=== PATIENT | male | born 1955 | race Caucasian/White ===

== ENCOUNTER 2019-02-17 13:51 | Emergency (ER) | payer MEDICAID ==
[~2019-02-17] VITALS: Ht 165.1 cm; Wt 54.1 kg
[~2019-02-17 13:51] MED LIST: DOXY100T21 PO; HYDR-4011 PO; ONDA4TAB14 PO
[2019-02-17 14:02] VITALS: Ht 165.1 cm; Wt 54.1 kg
[2019-02-17] MEDS ORDERED: ONDANSETRON 4 MG INJ IV STA (14:37)
[2019-02-17] MEDS ORDERED: morphine 4 MG/ML VIAL IV STA (14:37)
[2019-02-17] MEDS ORDERED: SOD CHLORIDE 0.9% 1,000 ML IV STA (14:37)
[2019-02-17] MEDS ORDERED: CEFTRIAXONE 1 GM/50 ML (PMX) 50 ML IVPB STA (16:22)
[2019-02-17] MEDS ORDERED: SODIUM CHLORIDE 0.9% 1L BAG IV* STA (16:22)
[2019-02-17] MEDS ORDERED: ONDANSETRON 4 MG INJ IV PRN (17:00)
[2019-02-17] MEDS ORDERED: ACETAMINOPHEN 325 MG TAB PO PRN (17:00)
--- NOTE | 2019-02-17 17:01 | ERD ---
ER Documentation Chief Complaint Chief Complaint gen weak, no appetite x3wks. no NVD. 'feels full' HPI Patient is a 63-year-old male with pancreatic cancer, diabetes, and hypertension who presents with weakness. The patient was discharged from [facility] on Thursday. He complains of chest pain, abdominal pain, and vomiting. says that he cannot eat or drink. He denies diarrhea. There are no fevers. Upon review of old medical records this is the patient's first visit to the emergency department. He does not currently have a primary doctor. Upon discharge paperwork from [facility] he was supposed to follow-up with Jennifer Murphy for his cancer treatment. ROS All systems reviewed and are negative except as per history of present illness. Medications Home Meds Reported Medications Doxycycline Monohydrate* (Doxycycline Monohydrate*) 100 Mg Tablet, 100 MG PO Q12 for 7 Days, TAB 02/17/19 Ondansetron (Ondansetron Odt) 4 Mg Tab.rapdis, 4 MG PO Q6H PRN for NAUSEA AND/OR VOMITING, TAB 02/17/19 Hydrocodone/Acetaminophen ([place] 5-325 Tablet) 1 Each Tablet, 1 EACH PO Q6 PRN for SEVERE PAIN LEVEL 7-10, TAB 02/17/19 Allergies Allergies: Coded Allergies: No Known Allergy (Unverified , 02/17/19) PMhx/Soc History of Surgery: Yes (left thumb amputation) Hx Alcohol Use: Yes Hx Substance Use: Yes Hx Tobacco Use: Yes Smoking Status: Former smoker FmHx Family History: No diabetes Physical Exam Vitals Vital Signs Date Temp Pulse Resp B/P (MAP) Pulse Ox O2 O2 Flow FiO2 Time Delivery Rate 02/17/19 82 20 117/85 98 Room Air 17:30 (96) 02/17/19 76 19 111/80 98 Room Air 15:30 (90) 02/17/19 97.5 95 16 109/71 96 14:02 (84) Physical Exam Const: No acute distress Head: Atraumatic Eyes: Normal Conjunctiva ENT: Dry mucous membranes Neck: Full range of motion. No meningismus. Resp: Clear to auscultation bilaterally Cardio: Regular rate and rhythm, no murmurs Abd: Soft, non tender, non distended. Normal bowel sounds Skin: No petechiae or rashes Back: No midline or flank tenderness Ext: No cyanosis, or edema Neur: Awake and alert Psych: Normal Mood and Affect Result Diagram: 02/17/19 1450 02/17/19 1450 Results 24 hrs Laboratory Tests Test 02/17/19 14:50 02/17/19 15:53 02/17/19 16:35 White Blood Count 16.4 10^3/ul Red Blood Count 3.77 10^6/ul Hemoglobin 13.0 g/dl Hematocrit 38.5 % Mean Corpuscular Volume 102.1 fl Mean Corpuscular Hemoglobin 34.5 pg Mean Corpuscular 33.8 g/dl Hemoglobin Concent Red Cell Distribution Width 14.0 % Platelet Count 120 10^3/UL Mean Platelet Volume 11.4 fl Immature Granulocytes % 1.900 % Neutrophils % 77.7 % Lymphocytes % 13.7 % Monocytes % 5.2 % Eosinophils % 1.1 % Basophils % 0.4 % Nucleated Red Blood Cells % 0.0 /100WBC Immature Granulocytes # 0.310 10^3/ul Neutrophils # 12.7 10^3/ul Lymphocytes # 2.2 10^3/ul Monocytes # 0.9 10^3/ul Eosinophils # 0.2 10^3/ul Basophils # 0.1 10^3/ul Nucleated Red Blood Cells # 0.0 10^3/ul Sodium Level 129 mmol/L Potassium Level 4.7 mmol/L Chloride Level 92 mmol/L Carbon Dioxide Level 31 mmol/L Anion Gap 6 Blood Urea Nitrogen 13 mg/dl Creatinine 0.56 mg/dl Est Glomerular Filtrat > 60 mL/min Rate mL/min Glucose Level 231 mg/dl Calcium Level 8.6 mg/dl Total Bilirubin 2.0 mg/dl Direct Bilirubin 1.20 mg/dl Indirect Bilirubin 0.8 mg/dl Aspartate Amino Transf (AST/SGOT) 122 IU/L Alanine 95 IU/L Aminotransferase (ALT/SGPT) Alkaline Phosphatase 1223 IU/L Troponin I 0.042 ng/ml Total Protein 7.2 g/dl Albumin 2.8 g/dl Globulin 4.40 g/dl Albumin/Globulin Ratio 0.63 Lipase 60 U/L Urine Color ROSALVA Urine Clarity CLEAR Urine pH 6.0 Urine Specific [place] 1.026 Urine Ketones TRACE mg/dL Urine Nitrite NEGATIVE mg/dL Urine Bilirubin 2+ mg/dL Urine Urobilinogen 2+ mg/dL Urine Leukocyte Esterase NEGATIVE Y[place]iko/ul Urine Microscopic RBC 1 /HPF Urine Microscopic WBC 7 /HPF Urine Mucus MODERATE /HPF Urine Hemoglobin NEGATIVE mg/dL Urine Glucose NEGATIVE mg/dL Urine Total Protein 1+ mg/dl POC Venous Lactate 1.9 mmol/L Current Medications Medications Dose Sig/Kadeem Start Time Status Last (Trade) Ordered Route PRN Stop Time Admin Dose Reason Admin Sodium 1,000 ml @ Q1H STAT 02/17/19 DC 02/17/19 Chloride 1,000 mls/hr IV 14:37 02/17/19 14:55 15:36 Morphine 4 mg ONCE STAT 02/17/19 DC 02/17/19 Sulfate IV 14:37 02/17/19 14:55 (morphine) 14:38 Ondansetron 4 mg ONCE STAT 02/17/19 DC 02/17/19 HCl (Zofran IV 14:37 02/17/19 14:54 Inj) 14:38 Sodium 1,620 ml BOLUS OVER 2 02/17/19 DC 02/17/19 Chloride HOURS STAT 16:22 02/17/19 16:39 (NS) IV* 16:23 Ceftriaxone 50 ml @ ONCE STAT 02/17/19 DC 02/17/19 Sodium 100 mls/hr IVPB 16:22 02/17/19 16:39 16:51 Ondansetron 4 mg BRIDGE ORDER 02/17/19 HCl (Zofran PRN IV 17:00 02/18/19 Inj) NAUSEA/VOMITI 16:59 NG 650 mg ER BRIDGE 02/17/19 Acetaminophen PRN PO 17:00 02/18/19 (Tylenol .MILD PAIN 16:59 Tab) 1-3 OR TEMP Procedures/MDM EKG read by me: Rate/Rhythm: Regular rate and rhythm at a rate of 82 Intervals: Normal Impression: No evidence of ischemia or arrhythmia Patient is a 63-year-old male who presents with weakness, chest pain, and abdo michell pain. He was found to have duration. I spoke with the panel team for admission to the hospital. Dr. Bishop has come to the bedside and seen the patient and does not find any criteria for admission at this time. The patient does need follow-up and treatment for his pancreatic cancer and he was instructed to follow-up with Jennifer Murphy as directed Darnell Corrgian. The patient can return for any worsening symptoms. I doubt sepsis at this time. Departure Diagnosis: Primary Impression: Pancreatic cancer Pancreatic malignancy location: unspecified Qualified Codes: C25.9 - Malignant neoplasm of pancreas, unspecified Additional Impression: Acute weakness Condition: Fair Patient Instructions: Weakness, Unk Cause Referrals: [facility] [place], [place] YOU HAVE RECEIVED A MEDICAL SCREENING EXAM AND THE RESULTS INDICATE THAT YOU DO NOT HAVE A CONDITION THAT REQUIRES URGENT TREATMENT IN THE EMERGENCY DEPARTMENT. FURTHER EVALUATION AND TREATMENT OF YOUR CONDITION CAN WAIT UNTIL YOU ARE SEEN IN YOUR DOCTORS OFFICE WITHIN THE NEXT 1-2 DAYS. IT IS YOUR RESPONSIBILITY TO MAKE AN APPOINTMENT FOR FOLOW-UP CARE. IF YOU HAVE A PRIMARY DOCTOR --you should call your primary doctor and schedule and appointment IF YOU DO NOT HAVE A PRIMARY DOCTOR YOU CAN CALL OUR PHYSICIAN REFERRAL HOTLINE AT . IF YOU CAN NOT AFFORD TO SEE A PHYSICIAN YOU CAN CHOSE FROM THE FOLLOWING [facility] INSTITUTIONS: [facility] [id number] [place] [id number] [facility] [address] [place] [address] [facility] [address] [place] [address] Additional Instructions: Llame al doctor efren mcdonald (Referral Sources) MAANA y mekhi sheila LEI PARA DENTRO DE SHEILA SEMANA. Dgale a la secretaria que nosotros le instruimos hacer esta lei.Avise o llame si ontiveros condicin se empeora antes de la lei. SHOSHANA PUGA MD Feb 17, 2019 17:01
--- NOTE | 2019-02-17 17:16 | CONS ---
Assessment/Plan Assessment/Plan Assessment/Plan (Daily) 63 yo man with recently diagnosed pancreatic cancer s/p workup at outside hospital presents for cancer care. #Pancreatic cancer The patient meets no needs for acute inpatient admission - Dehydration: He has poor appetite but no true PO intolerance. Last emesis was 4 days ago. Clinically he is not dehydrated, with normal vitals and electrolytes. - Infection: He is finishing a course of doxycycline for unclear reasons. He denies dysuria and UA negative for leuk esterase and nitrates. He does not have productive cough. There is leukocytosis to 16 but this is likely due to cancer. This patient does need a definitive diagnosis of cancer, which he can get from the pathology department at [facility]. If it is pancreatic cancer he needs surgical evaluation for [place] or palliative chemotherapy. This is mostly an insurance issue unfortunately. Currently the patient is [facility] only, but his age should qualify him for [facility] which opens up more treatment options. Either way, the patient should either return to [facility] where he had his workup, or he should go to [facility] or another [facility]. Admission at [facility] will further fragment his treatment and would ultimately be doing him a disservice. Consultation Date/Type/Reason Admit Date/Time NA Date of Consultation: Feb 17, 2019 Type of Consult Internal Medicine Reason for Consultation Request for hospital admission Requesting Provider: SHOSHANA PUGA MD Date/Time of Note DATE: 02/17/19 TIME: 17:04 Hx of Present Illness Mr Andrade is a 63 yo man with recently diagnosed pancreatic cancer who presents to the ED accompanied by his with chronic abdominal pain and anorexia. The patient has a history of heavy tobacco (2 ppd) and alcohol use. He was in his usual state of health until about 01/31 when he presented to a hospital in [facility] with vague abdominal pain. He had a CT scan done showing a pancreatic mass. He was told it was likely cancer and he needs further workup. He then went to [facility] on 02/07 but apparently had to wait a very long time, so he left without being seen. Then on 02/08 presented to [facility] where he was admitted until 02/13. During that hospitalization they considered transfer for EUS with biopsy, but ultimately discharged him after a percutaneous core needle biospy on 02/12. I could not find pathology results back yet. Since discharge, the patient complains of vague burning, aching abdominal pain. It is relieved by [place]. He also has very poor appetite and gets early satiety. He has mild nausea, last vomited four days ago. He denies chest pain/pressure, dyspnea, productive cough, or dysuria. He is ambulatory. In the ED he was afebrile, VSS. Labs notable for WBC 16.4, down from 20s during hospitalization at [place]. UA was negative for leuk esterase and nitrates. He is requesting cancer treatment. 12 point ROS done, negative except per HPI Past Medical History Newly diagnosed pancreatic cancer Home Meds Reported Medications Doxycycline Monohydrate* (Doxycycline Monohydrate*) 100 Mg Tablet, 100 MG PO Q12 for 7 Days, TAB 02/17/19 Ondansetron (Ondansetron Odt) 4 Mg Tab.rapdis, 4 MG PO Q6H PRN for NAUSEA AND/OR VOMITING, TAB 02/17/19 Hydrocodone/Acetaminophen ([place] 5-325 Tablet) 1 Each Tablet, 1 EACH PO Q6 PRN for SEVERE PAIN LEVEL 7-10, TAB 02/17/19 Medications Current Medications Ondansetron HCl (Zofran Inj) 4 mg BRIDGE ORDER PRN IV NAUSEA/VOMITING; Start 02/17/19 at 17:00; Stop 02/18/19 at 16:59 Acetaminophen (Tylenol Tab) 650 mg ER BRIDGE PRN PO .MILD PAIN 1-3 OR TEMP; Start 02/17/19 at 17:00; Stop 02/18/19 at 16:59 Allergies: Coded Allergies: No Known Allergy (Unverified , 02/17/19) Past Surgical History Left thumb surgery Social History Alcohol Use: sober (Previously drank heavily, quit 3 weeks ago) Smoking Status: Former smoker (Previously smoked 2 ppd, quit 3 weeks ago) Drug Use: none Exam/Review of Systems Exam Vitals Vital Signs Date Temp Pulse Resp B/P (MAP) Pulse Ox O2 O2 Flow FiO2 Time Delivery Rate 02/17/19 76 19 111/80 98 Room Air 15:30 (90) 02/17/19 97.5 14:02 Exam Gen: Well appearing man in no acute distress. Eyes: PERRL, no icterus HEENT: Moist mucous membranes, clear oropharynx Neck: Supple, no lymphadenopathy, no jugular venous distension Card: Regular rate and rhythm, no murmurs Pulm: Clear to auscultation bilaterally. Abd: Firm, guarding. Nondistended. Normoactive bowel sounds. Ext: No cyanosis/clubbing/edema. Skin: No jaundice. Warm, dry, well perfused. Results Result Diagram: 02/17/19 1450 02/17/19 1450 Results 24hrs Laboratory Tests Test 02/17/19 14:50 02/17/19 15:53 02/17/19 16:35 White Blood Count 16.4 H Red Blood Count 3.77 L Hemoglobin 13.0 L Hematocrit 38.5 L Mean Corpuscular Volume 102.1 H Mean Corpuscular Hemoglobin 34.5 H Mean Corpuscular Hemoglobin Concent 33.8 Red Cell Distribution Width 14.0 Platelet Count 120 L Mean Platelet Volume 11.4 H Immature Granulocytes % 1.900 H Neutrophils % 77.7 H Lymphocytes % 13.7 L Monocytes % 5.2 Eosinophils % 1.1 Basophils % 0.4 Nucleated Red Blood Cells % 0.0 Immature Granulocytes # 0.310 H Neutrophils # 12.7 H Lymphocytes # 2.2 Monocytes # 0.9 Eosinophils # 0.2 Basophils # 0.1 Nucleated Red Blood Cells # 0.0 Sodium Level 129 L Potassium Level 4.7 Chloride Level 92 L Carbon Dioxide Level 31 Anion Gap 6 Blood Urea Nitrogen 13 Creatinine 0.56 L Est Glomerular Filtrat Rate mL/min > 60 Glucose Level 231 H Calcium Level 8.6 Total Bilirubin 2.0 H Direct Bilirubin 1.20 H Indirect Bilirubin 0.8 Aspartate Amino Transf (AST/SGOT) 122 H Alanine Aminotransferase (ALT/SGPT) 95 H Alkaline Phosphatase 1223 H Troponin I 0.042 Total Protein 7.2 Albumin 2.8 L Globulin 4.40 H Albumin/Globulin Ratio 0.63 Lipase 60 Urine Color ROSALVA Urine Clarity CLEAR Urine pH 6.0 Urine Specific [place] 1.026 Urine Ketones TRACE A Urine Nitrite NEGATIVE Urine Bilirubin 2+ H Urine Urobilinogen 2+ H Urine Leukocyte Esterase NEGATIVE Urine Microscopic RBC 1 Urine Microscopic WBC 7 H Urine Mucus MODERATE Urine Hemoglobin NEGATIVE Urine Glucose NEGATIVE Urine Total Protein 1+ H POC Venous Lactate 1.9 Medications Medication Current Medications Ondansetron HCl (Zofran Inj) 4 mg BRIDGE ORDER PRN IV NAUSEA/VOMITING; Start 02/17/19 at 17:00; Stop 02/18/19 at 16:59 Acetaminophen (Tylenol Tab) 650 mg ER BRIDGE PRN PO .MILD PAIN 1-3 OR TEMP; Start 02/17/19 at 17:00; Stop 02/18/19 at 16:59 MYA JUAREZ MD Feb 17, 2019 17:16
[2019-02-17 19:01] VITALS: BP 126/65; PULSE 75; RESP 20
== END 2019-02-17 19:02 | disposition home or self-care (01) ==
LOC: E/R 13:51
DX: C25.9 Malignant neoplasm of pancreas, unspecified (principal); I10 Essential (primary) hypertension; E11.9 Type 2 diabetes mellitus without complications; Z87.891 Personal history of nicotine dependence
CPT/HCPCS: 36415; 80053; 81001; 83605; 83690; 84484; 85025; 87040; 87086; 93005; 96374; 96375; J0696; J2270; J2405; J7030; Z7502